=== PATIENT | male | born 1955 | race Caucasian/White ===

== ENCOUNTER → 2016-09-13 | Day surgery (SDC) | payer BC ==
[~2016-09-13] MED LIST: ADVIL200 M2 PO; ELIQUIS5 MG PO; HOLTER MONITOR; METOPROLOL SUCC25 MG PO; METOPROLOL TAR25 MG PO; MULTI VITAMIN1 EACH PO; NO MEDICATIONS; PRINIVIL10 MG PO
--- NOTE | ~2016-09-13 | OR ---
Unit #: [id number] #: [id number] Patient: TRICIA CHAKRABORTY JR [id number] [address] [place], [place] [address] [id number] MR#: [id number] NAME: TRICIA CHAKRABORTY JR ROOM: Date of Procedure: 09/13/2016 Admission Date: 09/13/2016 Surgeon: Andrew Barnett M.D. : 1955 Attending Physician: Andrew Barnett M.D. Primary Care Physician: Katelin So M.D. OPERATIVE REPORT PRIMARY CARE PHYSICIAN Katelin So M.D. PREOPERATIVE DIAGNOSIS Colorectal cancer screening in an average-risk patient. PROCEDURES PERFORMED Colonoscopy and polypectomy. POSTOPERATIVE DIAGNOSES 1. The patient had two sessile polyps, one each in the descending colon and rectum. Both were removed using snare polypectomy. 2. Mild sigmoid and descending colon diverticulosis. 3. Rest of the examination up to cecum and terminal ileum was normal. The quality of the prep was good. RECOMMENDATIONS Repeat colonoscopy in 5 years. SEDATION USED MAC. DESCRIPTION OF PROCEDURE Following detailed explanation of potential risks and complications of a colonoscopy, namely perforation, bleeding, and complication related to sedation, the patient was brought to GI lab and laid in the left lateral decubitus position. A digital rectal examination was performed, which was normal. Lubricated tip of the Olympus video colonoscope was inserted through the anus and advanced under direct vision. The scope was advanced past rectosigmoid into descending colon. Multiple small to medium-sized diverticula were noted in this area. The scope tip was then navigated all the way up to cecum with visualization of ileocecal valve and the appendiceal orifice. Considerable amount of vegetative matter was present in the cecum, which took quite a bit to wash it off as well as the patient was turned in the supine position not to visualize the entire cecal mucosa, which was normal. Successive segments of the colonic mucosa were examined upon withdrawal and appeared unremarkable except for two sessile polyps, one each in the proximal descending colon and rectum. The rectal polyp was diminutive and the descending colon polyp was about 8 mm in size. Both the polyps were removed using snare polypectomy. They were retrieved and sent for histology. Other than the left-sided diverticula, no other abnormalities were found. The scope was withdrawn and the Unit #: [id number] #: [id number] Patient: TRICIA CHAKRABORTY JR patient returned to the recovery area. He tolerated the procedure without any postprocedure complications. Dictated by... Essence Desai/julius TD: 09/14/2016 00:04 JOB #: [id number] OPERATIVE REPORT Page 1 of 1 X Andrew Barnett MD X PROCEDURE OPERATIVE NOTE
== END | disposition home or self-care (01) ==
LOC: COPS 08:00
DX: Z12.11 Encounter for screening for malignant neoplasm of colon (principal); K63.5 Polyp of colon; K62.1 Rectal polyp; K57.30 Diverticulosis of large intestine without perforation or abscess without bleeding; I48.91 Unspecified atrial fibrillation; I10 Essential (primary) hypertension; Z79.01 Long term (current) use of anticoagulants; Z79.899 Other long term (current) drug therapy
CPT/HCPCS: 88305; J2250